=== PATIENT | female | born 1955 | race Two or more races ===

== ENCOUNTER → 2016-06-22 | Outpatient (CLI) | payer OTHER ==
[~2016-06-22] MED LIST: ADV25050 INH; ALBU8.5H3 INH; AMLO5TAB4 PO; ASPI-664 PO; BENZ-5 PO; CALC-385 PO; FAMO20TA18 PO; IBUP-1542 PO; LORA0.5T PO; MONT10TA21 PO; VALS80TA2 PO
--- NOTE | 2016-06-23 08:28 | RADRPT ---
PROCEDURE: XR pelvis/right hip. CLINICAL INDICATION: Hip pain TECHNIQUE: 2 views performed COMPARISON: 09/06/2015 FINDINGS: There is severe right hip osteoarthrosis and moderate to severe left hip osteoarthrosis. This is ass ociated with joint space narrowing, subchondral sclerosis , subchondral cyst formation and osteophyt osis. There is normal mineralization. No fractures or osseous lesions are identified. The soft ti ssues are unremarkable. IMPRESSION: Severe right hip osteoarthrosis. Moderate to severe left hip osteoarthrosis RPTAT: HGDB .Ashok Ceja MD, MD Date Time Electronically viewed and signed by .Ashok Ceja MD, on 06/23/2016 08:27 .B/
== END | disposition home or self-care (01) ==
LOC: HKI 09:13
PROVIDERS: ATTEND Orthopaedic Surgery
DX: M16.0 Bilateral primary osteoarthritis of hip (principal); Z86.718 Personal history of other venous thrombosis and embolism
CPT/HCPCS: 73502; Z7500; G0463

== ENCOUNTER → 2016-09-28 | Outpatient (CLI) | payer OTHER ==
--- NOTE | 2016-09-28 12:50 | RADRPT ---
PROCEDURE: XR Chest. CLINICAL INDICATION: Preoperative chest TECHNIQUE: Chest PA. COMPARISON: No comparison available. FINDINGS: The mediastinal structures are unremarkable. The heart is normal in size and configuration. The pu lmonary vascularity is normal. The lung chand are unremarkable. No consolidation is identified. The pleural spaces are unremarkable. The axial skeleton is unremarkable. IMPRESSION: No active intrathoracic disease. RPTAT: HGDB .Ashok Ceja MD, MD Date Time Electronically viewed and signed by .Ashok Ceja MD, on 09/28/2016 12:50 .B/
== END | disposition home or self-care (01) ==
LOC: HKI 11:40
PROVIDERS: ATTEND Orthopaedic Surgery
DX: M25.551 Pain in right hip (principal); M16.11 Unilateral primary osteoarthritis, right hip
CPT/HCPCS: 71010; Z7500; G0463

== ENCOUNTER 2016-10-08 05:40 | Inpatient (IN) | payer OTHER ==
--- NOTE | 2016-10-06 18:13 | PREOPHP ---
DATE OF ADMISSION: 10/08/2016 DICTATING PHYSICIAN: Dr. Pretty Jonas. REASON FOR ADMISSION: The patient is a 61-year-old female with long-standing history of right hip pa in, difficulty walking, standing and nocturnal pain. She is scheduled for right anterior total hip arthroplasty with Dr. Cole. HISTORY OF THE PRESENT ILLNESS: The patient is a 61-year-old female with right hip pain, difficult y standing, working. PAST MEDICAL HISTORY: Positive for hypertension, hyperlipidemia, depression, insomnia, asthma and h istory of DVT, status post venous stripping of left lower extremity in 2004. PAST SURGICAL HISTORY: Positive for hysterectomy in 2013, angiogram with 2 stent placements in 2014 and history of DVT, status post venous stripping left lower extremity in 2004. ALLERGIES: The patient has no known drug allergies. MEDICATIONS: 1. Aspirin 81 mg once a day. 2. Furosemide 40 mg once a day. 3. Klor-Con 8 mEq once a day. 4. Omeprazole 20 mg once a day. 5. Vitamin D 50,000 units once a week. 6. Escitalopram 20 mg once a day. 7. Amlodipine 5 mg once a day. 8. Advair 250/50 one puff twice a day. 9. Losartan with hydrochlorothiazide 100/25. 10. Gabapentin 100 mg one pill at bedtime. 11. Meclizine 25 mg once p.o. b.i.d. 12. Lipitor 40 mg one p.o. at bedtime. SOCIAL HISTORY: No smoking, no alcohol. No history of illicit drugs. FAMILY HISTORY: Noncontributory. REVIEW OF SYSTEMS: GENERAL: The patient had no weight loss. Denies weight loss. No night sweats, no visual changes, no throat pain. RESPIRATORY: Denies cough, history of asthma. CARDIOVASCULAR: History of hypertension, no chest pain, no palpitations. GASTROINTESTINAL: History of GERD, no pain, no distention. GENITOURINARY: No flank pain, no dysuria. MUSCULOSKELETAL: Right hip pain. NEUROPSYCHIATRIC: The patient has history of depression, no SI or HI. PHYSICAL EXAMINATION: GENERAL: The patient is in no acute distress. VITAL SIGNS: The patient's weight is 180 pounds, blood pressure 118/73, heart rate 77, respiratory rate 18, temperature 97.1. The patient's height is 5 feet 4 inches. HEENT: Normocephalic and atraumatic. PERRLA. Throat is clear. RESPIRATORY: Clear to auscultation bilaterally, no wheezing, no rhonchi. CARDIOVASCULAR: Regular rate and rhythm with no murmur. GASTROINTESTINAL: Nontender and nondistended. Bowel sounds are positive in 4 quadrants. GENITOURINARY: No CVA tenderness. MUSCULOSKELETAL: Right hip tenderness with decreased range of motion NEUROLOGICAL: Cranial nerves II through XII are intact. No pathological reflexes. PSYCHIATRIC: Alert and oriented. ASSESSMENT AND PLAN: Right hip osteoarthritis and is planned for anterior right total hip arthropla sty with Dr. Phillip Velasquez. Dictated By: GENERIC AUTHOR for JITENDRA MOLINA/ZACKARY Conf#: [id number] DID#: [id number]
[2016-10-07 10:42] VITALS: BMI 35.5
[~2016-10-08] VITALS: Ht 162.6 cm; Wt 85.7 kg
[2016-10-08] VITALS (23 sets, daily range): BP systolic 101–141; BP diastolic 55–76; PULSE 65–84; RESP 14–25; Ht 162.6 cm; Wt 85.7 kg
[2016-10-08] MEDS ORDERED: PREGABALIN 300 MG PO X1 PO ONE (06:00)
[2016-10-08] MEDS ORDERED: TRANEXAMIC ACID 910 MG in SOD CHLORIDE 0.9% 90.9 ML IV ONE (06:00)
[2016-10-08] MEDS ORDERED: oxyCODONE (CR) 10 MG TAB [oxyCONTIN] X1 DOSE PO ONE (06:00)
[2016-10-08] MEDS ORDERED: BUPIVACAINE LIPOSOME/PF 266 MG/20 ML VIAL INFIL ONE (06:00)
[2016-10-08] MEDS ORDERED: PAIN COCKTAIL-CEFUROXIME IRR ONE ×7 (06:00)
[2016-10-08] MEDS ORDERED: CEFAZOLIN 2GM/50 ML (PMX) 50 ML X1 BEFORE INCISION IVPB ONE (06:00)
[2016-10-08] MEDS ORDERED: traMADOL 50 MG TAB X 1 DOSE PO ONE (06:00)
[2016-10-08] MEDS ORDERED: CELECOXIB 400 MG PO X1 DOSE PO ONE (06:00)
[2016-10-08] MEDS ORDERED: POLYMYXIN B 500000 UNIT INJ ONE (06:58)
[2016-10-08] MEDS ORDERED: VANCOMYCIN 1 GM INJ ONE (06:58)
[2016-10-08] MEDS ORDERED: ETOMIDATE 20 MG INJ ONE (07:00)
[2016-10-08] MEDS ORDERED: GLYCOPYRROLATE 0.4 MG INJ ONE (07:05)
[2016-10-08] MEDS ORDERED: NEOSTIGMINE 3 MG/3 ML SYRINGE ONE (07:05)
[2016-10-08] MEDS ORDERED: CEFAZOLIN 1 GM INJ ONE (07:05)
[2016-10-08] MEDS ORDERED: ROCURONIUM 50 MG INJ ONE (07:05)
[2016-10-08] MEDS ORDERED: PROPOFOL 20 ML ONE (07:05)
[2016-10-08] MEDS ORDERED: MIDAZOLAM 1 MG/ML 2 ML INJ ONE (07:07)
[2016-10-08] MEDS ORDERED: ONDANSETRON 4 MG INJ ONE (07:07)
[2016-10-08] MEDS ORDERED: DEXAMETHASONE 4 MG/ML 1 ML INJ ONE (07:07)
[2016-10-08] MEDS ORDERED: FENTAnyl 50 MCG/ML VIAL ONE (07:07)
--- NOTE | 2016-10-08 07:08 | HPN ---
Date/Time of Note Date/Time of Note DATE: 10/08/16 TIME: 07:07 Interval H&P Admission Note Pt. seen H&P reviewed: No system changes No changes from H&P on 10/06/16 by JITENDRA Hickman MD Oct 08, 2016 07:08
[2016-10-08] MEDS ORDERED: EPHEDrine SULFATE 50 MG/5 ML SYG ONE (07:57)
[2016-10-08] MEDS ORDERED: BACITRACIN 50000 UNITS INJ IRR ONE (08:16)
[2016-10-08] MEDS ORDERED: DIPHENHYDRAMINE 50 MG INJ IV PRN (08:30)
[2016-10-08] MEDS ORDERED: LABETALOL HCL 20MG INJ IV PRN (08:30)
[2016-10-08] MEDS ORDERED: HYDROmorphONE (0.2 MG/ML) 10ML SYG IV PRN ×3 (08:30)
[2016-10-08] MEDS ORDERED: MEPERIDINE 25 MG INJ IV PRN (08:30)
[2016-10-08] MEDS ORDERED: TRIMETHOBENZAMIDE 100 MG/ML VIAL IM PRN (08:30)
[2016-10-08] MEDS ORDERED: EPHEDrine SULFATE 50 MG/5 ML SYG IV PRN (08:30)
[2016-10-08] MEDS ORDERED: FENTAnyl 50 MCG/ML VIAL IV PRN ×3 (08:30)
[2016-10-08] MEDS ORDERED: MIDAZOLAM 1 MG/ML 2 ML INJ IV PRN (08:30)
[2016-10-08] MEDS ORDERED: ONDANSETRON 4 MG INJ IV PRN ×2 (08:30→10:00)
[2016-10-08] MEDS ORDERED: hydrALAzine 20 MG INJ IV PRN (08:30)
[2016-10-08] MEDS ORDERED: PROPOFOL 100 ML ONE (08:48)
[2016-10-08] MEDS: LACTATED RINGER'S 1,000 ML IV SCH ×4 (09:39→17:39)
[2016-10-08] MEDS: TRANEXAMIC ACID 910 MG in SOD CHLORIDE 0.9% 100 ML IVPB ONE ×3 (09:41)
--- NOTE | 2016-10-08 09:48 | RADRPT ---
PROCEDURE: X-ray fluoroscopy guidance CLINICAL INDICATION: RT HIP REPLACEMENT TECHNIQUE: Fluoroscopic guidance was utilized for intraoperative procedure. COMPARISON: Plain radiographs of the right hip from 09/06/2015 FINDINGS: Fluoroscopic guidance was utilized for intraoperative procedure. 0.9 minutes of fluoroscopy time wa s utilized for the procedure. 16 x-ray images were obtained during the procedure. A total right hip prosthesis is noted in near anatomic alignment. IMPRESSION: X-ray fluoroscopic guidance utilized for intraoperative procedure. Total right hip prosthesis in near anatomic alignment. Please see procedure note details. RPTAT: EE Physician Luz Date Time Electronically viewed and signed by Physician Luz on 10/08/2016 09:48 RA/
--- NOTE | 2016-10-08 09:56 | PDOCDIS ---
Discharge Instructions DIAGNOSIS Discharge Diagnosis: s/p right anterior GABE CONDITION Patient Condition: Good HOME CARE INSTRUCTIONS: Diet Instructions: Regular ACTIVITY: Activity Restrictions: Slowly Increase Activity Rest between Activity Avoid heavy lifting Do not operate Machinery Do not operate Power Tool Avoid Heavy Housework Keep Limb Elevated Bathing Restrictions: Shower FOLLOW UP/APPOINTMENTS Appointments follow up in the office on 10/19/16 OTHER ORDERS: Other Orders: S/P Anterior GABE Physical Therapy: Three times per week at home x 3 weeks Daily in Rehab/SNF WB STATUS: WBAT Strengthening exercises for both upper and un-operated lower extremities. 1. Gait training with front wheeled walker 2. Wide base gait, no pivot turns. 3. Abductor strengthening. 4. Quadriceps and hamstring strengthening. 5. May switch to cane in contra lateral hand 6 weeks after surgery. 6. Physical Therapy can open case if nursing is not available. 7. Ice Packs while at rest to surgical wound for 20 minutes, 3 times/day. 8. Patient requires mobile SCDs to reduce risk of developing DVT following GABE. Patient will use the mobile SCDs for 30 days postoperatively. Hip Precautions: no posterior hip precautions Bathing assistance by home health aide twice weekly if Medicare patient. Occupational Therapy: Evaluation for assistive devices and ADL training. Wound Care: Keep incision dry & covered with Tegaderm until first visit with Dr. Velasquez Anticoagulation Orders: Adjusted Coumadin dose x 3 weeks from the date of surgery. Target INR 1.7-2.0. Prothrombin time & INR are done every Wednesday and for three weeks post- operatively. Please call and leave a message with [employer] @ [phone] with results the same day before the close of business. The patient should not eat green leafy vegetables. Follow-up: Call for an appointment with Dr. Velasquez in 1 week after discharged from hospital at . DME Orders: FWMode, 3-in-1 Commode, Mobile SCDs SAURABH CHAVEZ PA-C Oct 08, 2016 09:56
--- NOTE | 2016-10-08 09:56 | OPR ---
Date/Time of Note Date/Time of Note DATE: 10/08/16 TIME: 09:55 Operative Report Free Text/Dictation Dictation # [id number] Procedure Date: Oct 08, 2016 Preoperative Diagnosis Right Hip OA Postoperative Diagnosis Same Operation Performed Right Anterior GABE Surgeon: JITENDRA AWAD MD urgent care physician assistant: SAURABH CHAVEZ PA-C Anesthesia: general, spinal Anesthesiologist: Jeremi Fung M.D. Estimated Blood Loss: 250 - 300 ml's Specimens Femoral Head Tubes/Drains Hemovac x 1 Complications: None Pt Condition Post Procedure: stable Disposition: PACU JITENDRA AWAD MD Oct 08, 2016 09:56
[2016-10-08] MEDS ORDERED: BISACODYL 10 MG SUPP PR PRN (10:00)
[2016-10-08] MEDS ORDERED: HYDROmorphONE 1 MG/ML SYG IV PRN (10:00)
[2016-10-08] MEDS ORDERED: NA PHOSPHATE/BIPHOS 133 ML ENEMA PR PRN (10:00)
[2016-10-08] MEDS ORDERED: MAGNESIUM HYDROXIDE 30ML CUP PO PRN (10:00)
[2016-10-08] MEDS ORDERED: DIPHENHYDRAMINE 25 MG CAP PO PRN (10:00)
[2016-10-08] MEDS ORDERED: NACL 0.9% 3 ML SYG IV SCH (10:00)
--- NOTE | 2016-10-08 10:00 | PN ---
Date/Time of Note Date/Time of Note DATE: 10/08/16 TIME: 09:58 Assessment/Plan Lines/Catheters IV Catheter Type (from Nrsg): Saline Lock Assessment/Plan Assessment/Plan Stable in PACU, s/p right anterior GABE -continue Ancef until drain removed -pain meds as needed -Coumadin 3mg at 1700 today -SCDs BLE for DVT prophylaxis -OOB with PT -monitor drain -check AM labs including INR -d/c urbano in AM XR of the right hip is pending at this time Subjective 24 Hr Interval Summary Stable in PACU. Moving all extremities. Denies pain. Exam/Review of Systems Vital Signs Vitals Vital Signs Date Time Temp Pulse Resp B/P Pulse Ox O2 Delivery O2 Flow Rate FiO2 10/08/16 09:49 97.7 10/08/16 07:02 82 18 140/71 98 Room Air Exam Free Text/Dictation Hemovac: minimal Dressing dry Incision clean, dry, and intact without redness or drainage 5/5 Quadriceps, Tibialis Anterior, EHL, Gastroc, Soleus, Peroneals Normal sensation Palpable DT/PT, CR <2 sec No distal edema SAURABH CHAVEZ PA-C Oct 08, 2016 10:00
[2016-10-08 10:19] LABS: HEMATOCRIT 36.7 % (37.0-47.0); HEMOGLOBIN 12.1 g/dl (12.0-16.0)
[2016-10-08] MEDS: CEFAZOLIN 2 GM/50 ML (PMX) 50 ML IVPB SCH ×2 (10:19→22:12)
[2016-10-08 10:33] LABS: CALCIUM 8.7 mg/dl (8.4-10.2); CREATININE 0.56 mg/dl (0.44-1.00); POTASSIUM 4.2 mmol/L (3.5-5.1)
--- NOTE | 2016-10-08 10:57 | RADRPT ---
PROCEDURE: XR Pelvis CLINICAL INDICATION: Postop TECHNIQUE: Two AP radiographs were submitted. COMPARISON: The intraoperative study done earlier on the same date FINDINGS: Osseous structures: A well seated total right hip replacement is again evident. The osseous element s otherwise appear intact. Mild degenerative endplate changes are seen within the lumbar spine. Joint spaces: Moderate degenerative changes seen about the left hip. the sacroiliac joints appear unremarkable without significant erosions or sclerosis. Soft tissues: A surgical drain is been placed about the right hip, there is subcutaneous air and sup erficial wilman have been placed laterally. A Ramirez catheter is evident. IMPRESSION: 1. Well seated total right hip replacement with the drain in place along with superficial wilman. Postop subcutaneous air is noted. 2. Moderate degenerative change seen of about the left hip with degenerative change also seen withi n the lumbar spine. 3. A Ramirez catheter is in place. Physician Aye Date Time Electronically viewed and signed by Physician Aye on 10/08/2016 10:56 RH/
--- NOTE | 2016-10-08 11:01 | OPR ---
DATE OF OPERATION: 10/08/2016 PREOPERATIVE DIAGNOSIS: Right hip osteoarthritis. POSTOPERATIVE DIAGNOSIS: Right hip osteoarthritis. OPERATION PERFORMED: Right anterior total hip arthroplasty. SURGEON: Jitendra Velasquez MD LEAD GAME DESIGNER: ENZO Mckinley COMPONENTS USED: DePuy size 50 mm Gription Luana cup, 50/32 neutral AltrX polyethylene liner, si ze 3 high offset Actis stem, 32+1 ceramic head. ANESTHESIA: Spinal plus general endotracheal intubation plus periarticular injection. ANESTHESIOLOGIST: Dr. Fung. ESTIMATED BLOOD LOSS: 300 mL. INTRAVENOUS FLUIDS: Two liters crystalloid. SPECIMENS: Femoral head. DRAINS: Hemovac x1. COMPLICATIONS: None. DISPOSITION: Patient tolerated the procedure well and was taken to the recovery room in stable cond ition. INDICATIONS: The patient is a 61-year-old woman who has had progressive worsening pain in the right hip with radiographic evidence of severe osteoarthritis. She has failed nonsurgical means of treat ment to control her pain including activity modifications, pain medications, intra-articular injecti ons and ambulatory assist devices. Despite these measures, she has had worsening pain and I felt sh e would benefit from a total hip arthroplasty through an anterior approach. The risks, benefits, and alternatives of the procedure were explained in detail to the patient. I e xplained the risks of the surgery to include, but not be limited to: bleeding and possible need for blood transfusion; infection; pain; stiffness; neurovascular injury with possible numbness, weakness , and/or paralysis anywhere from the hip down to the toes; fracture; instability; dislocation; leg l ength inequality; wear and/or loosening of the prosthesis and possible need for future revision; blo od clots; pulmonary embolism; and anesthetic complications such as heart attack, stroke, GI bleed, p neumonia, and/or . Ample time was allowed for the patient to ask questions, all of which were addressed and answered. The patient understood the risks involved and wished to proceed. Informed c onsent was signed prior to the procedure. PROCEDURE: The patient's right hip was initialed with a marking pen in the preoperative area to iden tify the correct operative site. The patient was brought to the operating room and transferred from the [facility] to the [facility] where a spinal anesthetic was administered. The patient was then anesthetized and intubated. A Ramirez catheter was placed. Both feet were placed into well-padd ed boots which were then placed into the leg holders of the traction booms. A timeout was performed to confirm that the right side was the correct operative site. The patient was given 2 g of intrav enous Ancef within one hour prior to the procedure. The operative hip was prepped and draped in the usual sterile fashion. A 10 cm oblique incision was made over the anterior aspect of the hip and carried down through subcu taneous tissue and fat with sharp dissection. The tensor fascia dimas was incised along the length o f the wound. The tensor fascia muscle was retracted laterally and the sartorius medially. The anter ior circumflex vessels were identified and tied off with 2-0 silk suture and coagulated with the [employer] josé miguel Link butcherette. The rectus femoris was elevated off the anterior capsule and an anterior capsu lectomy performed. A femoral neck osteotomy was made and the head removed from the acetabulum. The acetabulum was denuded of cartilage circumferentially, as was the femoral head. Retractors were pl aced around the acetabulum. The remnants of the labrum and ligamentum teres were excised. I reamed the acetabulum to the medial wall and then went into an anatomic position and increased the reamer size in 2 mm increments until I got a good bite and was down to bleeding subchondral bone. The Luana cup was opened and impacted into the acetabulum and sat flush circumferentially, gettin g a good bite. C-arm imaging showed it had about 40 to 45 degrees of abduction and 20 degrees of ant eversion. The real liner was opened and impacted into the acetabulum and sat flush circumferentiall y. Attention was turned towards the femur. The operative leg was carefully lowered to the floor with the leg adducted. The foot was then exter leroy rotated to approximately 110 degrees. A posteromedial release was performed to optimize expos ure. The femoral hook was placed underneath the proximal femur and the hydraulic lift was then used to elevate the femur up out of the wound. The irma cutter osteotome was used to remove the remai erika overhanging greater trochanter. The femur was then broached, going up in one size increments u ntil it sat flush with the neck cut and a stable fit was achieved. The trial neck and head were ass embled and reduced into the acetabulum. Fluoroscopic imaging showed the components to be in good pos ition and the leg lengths and offsets to be equal. At this point, the trial was dislocated and the trial broach removed. The canal was irrigated and d ried. The real stem was opened and impacted into the femur. The trunnion was irrigated and dried, a nd the real femoral head was impacted onto the trunnion, and reduced into the acetabulum. The soft tissues were infiltrated with a mixture of 150 mg of 0.5% Bupivacaine, 8 mg of Duramorph, 3 00 mcg of epinephrine, 30 mg of Toradol, 100 mcg of clonidine, 750 mg of cefuroxime and 86 mL of nor mal saline, followed by an injection of 266 mg of liposomal Bupivacaine. At this point the hip was irrigated with a mixture of betadine/saline and then antibiotic saline with pulsatile lavage. A Hem ovac drain was placed in the deep portion of the wound and brought out the anterolateral thigh. Ther e was good hemostasis. The tensor fascia dimas was repaired with a running #1 Vicryl. The deep fat layer was irrigated and closed with 2-0 Stratafix and the subcutaneous layer closed with 3-0 Vicryl and the skin was closed with wilman and then sealed with Dermabond. The drain was secured with 3-0 nylon. The sponge and needle counts were correct at the end of the case. The wound was covered with an occ lusive dressing. The patient was awakened, extubated, and taken to the recovery room in stable cond ition. Dictated By: JITENDRA TRIVEDI/ZACKARY Conf#: [id number] DID#: [id number]
[2016-10-08] MEDS ORDERED: EXPAREL NOTE (BUPIVICAINE LIPOSOMAL) XX SCH (11:30)
[2016-10-08] MEDS: ALBUTEROL 18 GM INHALER INH SCH (12:00)
--- NOTE | 2016-10-08 12:14 | CONS ---
Date/Time of Note Date/Time of Note DATE: 10/08/16 TIME: 12:14 Assessment/Plan Assessment/Plan Chief Complaint/Hosp Course 61 yo F with pmhx asthma, R hip OA sp R GABE 6.05.26 admitted to the hospital for post operative monitoring, now with complaint of chest/back pain. #chest pain: from the time of my initial encounter with the patient (2 hours between) chest pain resolved and pt endorsed mild upper back pain. EKG reassuring as was troponin. CK MB nl, CK slightly elevated. differential diagnosis cardiac v MSK v other PLAN -transfer to tele monitoring -formal ACS r/o with serial cardiac enzymes -TTE -possible cardiology consult in AM pending results of above #asthma: cont home inhalers #GABE: as per ortho -ATC as per ortho #FEN: as per ortho thank you for this consult hospitalist service to continue to follow POC dw pt and family at length Problems: Consultation Date/Type/Reason Admit Date/Time Oct 08, 2016 at 05:40 Type of Consultation: Hospitalist Reason for Consultation medical management Referring Provider: JITENDRA AWAD MD Hx of Present Illness 61 yo F with pmhx asthma, DVT sp ATC, R hip OA sp elective R hip GABE earlier today admitted to the hospital for post operative monitoring. Hospitalist service consulted for medical management. Upon transfer from PACU to the floor, pt began to experience L sided chest pain. It is relieved by dilaudid. Does not change with exertion or deep breathing. +occ radiation to L arm. Pt denies any previous h/o chest pain and chart review does not reveal any CAD hx. Pt does not freely endorse weight changes, fever, chills, rashes, SOB, abd pain , constipation, diarrhea, pain on urination, blood in in her urine, numbness, tingling, weakness, or headaches. No palpitations. Past Medical History h/o LE DVT >10 yrs ago, sp ATC x unknown amount of time h/o varicose veins Medical History: other (asthma, h/o DVT) Past Surgical History R GABE today Family History Significant Family History: no pertinent family hx Social History lives in the community with family Smoking Status: Never smoker Exam/Review of Systems Vital Signs Vitals Vital Signs Date Time Temp Pulse Resp B/P Pulse Ox O2 Delivery O2 Flow Rate FiO2 10/08/16 10:47 Nasal Cannula 2.0 10/08/16 10:47 98.2 21 134/71 96 10/08/16 10:43 84 Exam laying in bed, uncomfortable at times no carotid bruits rrr no mrg no ttp over costochondral joints lungs clear abd soft R surgical site c/d/i no le edema no rashes responds to questions appropriately moves exts freely woundvac from R hip with serosang drainage Results Result Diagram: 10/08/16 1004 10/08/16 1004 Results 24 hrs Laboratory Tests Test 10/08/16 10:04 Hemoglobin 12.1 Hematocrit 36.7 L Sodium Level 140 Potassium Level 4.2 Chloride Level 110 Carbon Dioxide Level 28 Anion Gap 6 L Blood Urea Nitrogen 11 Creatinine 0.56 Glucose Level 179 Calcium Level 8.7 Medications Medications Current Medications Lactated Ringer's (Lr) 1,000 ml @ 100 mls/hr Q10H IV Last administered on t 12:11; Admin Dose 100 MLS/HR; Start 10/08/16 at 06:00; Stop 10/08/16 at 23:00 Miscellaneous Information 1 ea NOTE XX ; Start 10/08/16 at 11:30; Stop 10/08/16 at 23:00 Albuterol (Ventolin Hfa) 2 puff Q6 INH ; Start 10/08/16 at 12:00 Amlodipine Besylate (Norvasc) 5 mg DAILY PO ; Start 10/09/16 at 09:00 Benzonatate (Tessalon) 200 mg Q8H PRN PO COUGH; Start 10/08/16 at 13:00 Montelukast Sodium (Singulair) 10 mg HS PO ; Start 10/08/16 at 21:00 Salmeterol Xinafoate/ Fluticasone (Advair 250/50 Diskus) 1 inh BID INH ; Start 10/08/16 at 21:00 Valsartan 80 mg 80 mg DAILY PO ; Start 10/09/16 at 09:00 Lactated Ringer's (Lr) 1,000 ml @ 125 mls/hr Q8H IV ; Start 10/08/16 at 09:39 Tramadol HCl (Ultram) 50 mg Q6 PO ; Start 10/08/16 at 12:00; Stop 10/11/16 at 11: 59 Acetaminophen/ Hydrocodone Bitart (Briggs (5/325)) 1 tab Q4H PRN PO PAIN LEVEL 1 -3; Start 10/08/16 at 10:00 Acetaminophen/ Hydrocodone Bitart (Briggs (5/325)) 2 tab Q4H PRN PO PAIN LEVEL 4 -7; Start 10/08/16 at 10:00 Hydromorphone HCl 1 mg 1 mg Q3H PRN IV PAIN LEVEL 8-10; Start 10/08/16 at 10:00 Cefazolin Sodium/ Dextrose (Ancef 2 Gm/50 ml (Pmx)) 50 ml @ 100 mls/hr Q8H IVPB Last administered on 10/08/16t 10:19; Admin Dose 100 MLS/HR; Start 10/08/16 at 10:00; Stop 10/09/16 at 02:29 Ondansetron HCl (Zofran Inj) 4 mg Q6H PRN IV NAUSEA AND/OR VOMITING; Start 10/08 at 10:00 Bisacodyl (Dulcolax Supp) 10 mg Q12H PRN [place] CONSTIPATION; Start 10/08/16 at 10: 00 Magnesium Hydroxide (Milk Of Mag) 30 ml BID PRN PO CONSTIPATION; Start 10/08/16 at 10:00 Sodium Biphosphate/ Sodium Phosphate (Fleet Enema) 133 ml DAILY PRN [place] CONSTIPATION; Start 10/08/16 at 10:00 Docusate Sodium (Colace) 100 mg BID PO ; Start 10/08/16 at 21:00 Diphenhydramine HCl (Benadryl) 25 mg Q6H PRN PO PRURITUS; Start 10/08/16 at 10: 00 Warfarin Sodium (Coumadin) 3 mg ONCE@17 PO ; Start 10/08/16 at 17:00; Stop at 23:00 Pantoprazole (Protonix Tab) 40 mg BID@06,18 PO ; Start 10/08/16 at 18:00 Procedures Procedures cardiac markers reviewed GHANSHYAM CHAHAL MD Oct 08, 2016 12:14
[2016-10-08 12:33] LABS: CREATINE KINASE 228 IU/L (23-200)
[2016-10-08 12:46] LABS: CK-MB 1.74 ng/ml (0.0-2.4)
[2016-10-08 12:47] LABS: TROPONIN-I < 0.012 ng/ml (0.00-0.12)
[2016-10-08] MEDS ORDERED: BENZONATATE 100 MG CAP PO PRN (13:00)
[2016-10-08] MEDS ORDERED: TRANEXAMIC ACID 860 MG in SOD CHLORIDE 0.9% 100 ML IVPB ONE ×2 (13:00→16:00)
[2016-10-08] MEDS ORDERED: HYDR-3498 PO (13:45)
[2016-10-08] MEDS ORDERED: TRAM50TA2 PO (13:45)
[2016-10-08] MEDS ORDERED: BACITRACIN 50000 UNITS INJ ONE (15:09)
[2016-10-08] MEDS ORDERED: WARFARIN 3 MG TAB PO SCH (17:00)
[2016-10-08 17:17] LABS: CREATINE KINASE 254 IU/L (23-200)
--- NOTE | 2016-10-08 17:26 | RADRPT ---
Echocardiogram Report Patient Name: JESSICA HOLCOMB Gender: Female Date: 1955 Study Date: 08-Oct-2016 [employer] Repairer: Riley [facility] Location: [id number] Ref. Physician: GHANSHYAM CHAHAL Quality: Adequate Procedures: Transthoracic echocardiogram with complete 2D, M-Mode, and doppler examination. Indications: Chest Pain. 2D/M Mode Doppler Measurement Value Normal Ranges Measurement Value Normal Ranges LVIDd 2D 3.7 3.5 - 5.6 cm AV Peak Ez 1.3 m/sec LVIDs 2D 2.6 2.1 - 4.1 cm AV Peak PG 6.3 mmHg LVPWd 2D 1.1 0.6 - 1.1 cm AI Peak PG 12.6 mmHg IVSd 2D 1.1 0.6 - 1.1 cm AI Peak Ez 1.8 m/sec AoR Diam 2D 2.4 2.0 - 3.7 cm AI PHT 356.6 msec EDV 2D 59.7 cm3 LVOT Peak Ez 1.0 m/sec ESV 2D 16.6 cm3 LVOT Peak PG 4.3 mmHg LA Dimen 2D 3.6 2.3 - 4.0 cm MV E Peak Ez 0.8 m/sec MV A Peak Ez 0.8 m/sec MV E/A 1.0 MV Decel Time 209 msec MV Decel [place] 4 MV E/A 1.0 TR Peak Ez 2.5 m/sec TR Peak PG 24.3 mmHg RVSP 27.0 mmHg Findings Left Ventricle: Normal left ventricular systolic function. Normal left ventricular cavity size. Normal left ventricular wall thickness. Ejection fraction is visually estimated at 65 %. Tissue Doppler/Mitral Doppler indices are within normal limits. Right Ventricle: Normal right ventricular size. Normal right ventricular systolic function. Left Atrium: The left atrium is normal in size. Right Atrium: The right atrium is normal in size. Mitral Valve: Moderate mitral annular calcification. Trace mitral regurgitation. Aortic Valve: Normal appearance of the aortic valve. Mild aortic valve regurgitation. Tricuspid Valve: Normal appearance of the tricuspid valve. Estimated peak PA systolic pressure 27 mmHg. There is mild tricuspid regurgitation. Pulmonic Valve: Pulmonic valve not well visualized. There is trace pulmonic regurgitation. Pericardium: Normal pericardium with no significant pericardial effusion. Aorta: Normal aortic root. IVC: Normal size and normal respiratory collapse consistent with normal right atrial pressure. Conclusions 1.Normal left ventricular systolic function. Normal left ventricular cavity size. Normal left ventricular wall thickness. Ejection fraction is visually estimated at 65 %. Tissue Doppler/Mitral Doppler indices are within normal limits. 2.No significant valvular stenosis or regurgitation seen. 3.Estimated peak PA systolic pressure 27 mmHg based on RA pressure of 3 mmHg. Electronically Signed By: Bryce Rodrigues 08-Oct-2016 17:25:34 -0700 Patient Name: JESSICA HOLCOMB Study Date: 08-Oct-[id number]
[2016-10-08 17:31] LABS: CK-MB 1.89 ng/ml (0.0-2.4)
[2016-10-08 17:32] LABS: TROPONIN-I < 0.012 ng/ml (0.00-0.12)
--- NOTE | 2016-10-08 17:46 | RADRPT ---
Vent Rate: 65 bpm RR Interval: 0 msec ND Interval: 178 msec QRS Duration: 72 msec QT Interval: 426 msec QTC Interval: 443 msec P-R-T [place]: 57 - 54 - 71 degrees Normal sinus rhythm Low voltage QRS Borderline ECG Electronically Signed By: Bryce Rodrigues [id number]
[2016-10-08] MEDS: traMADol 50 MG TAB PO SCH ×2 (18:00→23:32)
[2016-10-08] MEDS: PANTOPRAZOLE (EC) 40 MG TAB PO SCH (18:23)
[2016-10-08] MEDS: DOCUSATE SODIUM 100 MG CAP PO SCH (21:21)
[2016-10-08] MEDS: MONTELUKAST 10 MG TAB PO SCH (21:21)
[2016-10-08] MEDS: SALMETEROL/FLUTICASONE 250/50 INHA INH SCH (22:09)
[2016-10-09] VITALS (12 sets, daily range): BP systolic 94–123; BP diastolic 49–65; PULSE 61–82; RESP 15–18
[2016-10-09] MEDS: ALBUTEROL 18 GM INHALER INH SCH ×6 (00:25→23:35)
[2016-10-09] MEDS: HYDROCODONE/APAP (5/325) TAB PO PRN ×6 (00:26→23:34)
[2016-10-09] MEDS: LACTATED RINGER'S 1,000 ML IV SCH ×3 (00:28→09:48)
[2016-10-09] MEDS: CEFAZOLIN 2 GM/50 ML (PMX) 50 ML IVPB SCH (01:26)
[2016-10-09 02:43] LABS: CREATINE KINASE 275 IU/L (23-200)
[2016-10-09 03:08] LABS: TROPONIN-I < 0.012 ng/ml (0.00-0.12)
[2016-10-09] MEDS: PANTOPRAZOLE (EC) 40 MG TAB PO SCH ×2 (05:17→17:07)
[2016-10-09 06:05] LABS: HEMATOCRIT 28.6 % (37.0-47.0); HEMOGLOBIN 9.6 g/dl (12.0-16.0)
[2016-10-09] MEDS: traMADol 50 MG TAB PO SCH ×3 (06:14→17:06)
[2016-10-09 06:15] LABS: INR 1.02; PROTIME 13.4 Sec (12.2-14.2)
[2016-10-09 06:39] LABS: CALCIUM 8.5 mg/dl (8.4-10.2); CREATININE 0.49 mg/dl (0.44-1.00); POTASSIUM 4.4 mmol/L (3.5-5.1)
--- NOTE | 2016-10-09 08:54 | PN ---
Date/Time of Note Date/Time of Note DATE: 10/09/16 TIME: 08:53 Assessment/Plan Lines/Catheters IV Catheter Type (from Nrsg): Peripheral IV Ramirez in Place (from Nrsg): Yes Assessment/Plan Assessment/Plan POD # 1. Stable. -Drain d/c'd -Pain meds -OOB with PT -Coumadin -SCDs Subjective 24 Hr Interval Summary Comfortable. Minimal hip pain. Denies chest pain. Exam/Review of Systems Vital Signs Vitals Vital Signs Date Time Temp Pulse Resp B/P Pulse Ox O2 Delivery O2 Flow Rate FiO2 10/09/16 08:00 61 10/09/16 07:16 98.1 16 100/55 100 10/08/16 21:00 Nasal Cannula 2.0 Intake and Output 10/08/16 10/08/16 10/09/16 15:00 23:00 07:00 Intake Total 3017.7 ml 158.6 ml 3337.5 ml Output Total 450 ml 1200 ml 3040 ml Balance 2567.7 ml -1041.4 ml 297.5 ml Exam Free Text/Dictation Hemovac: 40 cc Dressing dry Incision clean, dry, and intact without redness or drainage 5/5 Tibialis Anterior, EHL, Gastroc Soleus, Peroneals Normal sensation Palpable DP/PT, CR < 2 Sec No distal edema INR 1.02 Results Result Diagram: 10/09/16 0538 10/09/16 0538 JITENDRA AWAD MD Oct 09, 2016 08:54
[2016-10-09] MEDS: VALSARTAN 80 MG TAB PO SCH (09:00)
[2016-10-09 09:06] LABS: ADD UMIC YES; URINE BILIRUBIN (Dip) NEGATIVE (NEGATIVE); URINE BLOOD (Dip) 1+ (NEGATIVE); URINE COLOR LT. YELLOW (YELLOW); URINE GLUCOSE (Dip) NEGATIVE (NEGATIVE); URINE KETONES (Dip) NEGATIVE (NEGATIVE); URINE LEUKOCYTE ESTERASE (Dip) NEGATIVE (NEGATIVE); URINE NITRITE (Dip) NEGATIVE (NEGATIVE); URINE TOTAL PROTEIN (Dip) NEGATIVE (NEGATIVE); URINE UROBILINOGEN (Dip) 0.2 E.U./dL (0.1-1.0)
[2016-10-09] MEDS: SALMETEROL/FLUTICASONE 250/50 INHA INH SCH ×2 (09:45→21:15)
[2016-10-09] MEDS: DOCUSATE SODIUM 100 MG CAP PO SCH ×2 (09:48→21:15)
[2016-10-09] MEDS: AMLODIPINE 5 MG TAB PO SCH (09:49)
[2016-10-09 09:50] LABS: BACTERIA,URINE RARE; URINE RBCS 0-2 /HPF (0)
[2016-10-09] MEDS ORDERED: AL HYDROX/MG HYDROX/SIMETH 30 ML CUP PO ONE (13:30)
[2016-10-09] MEDS ORDERED: AL HYDROX/MG HYDROX/SIMETH 30 ML CUP PO PRN (13:30)
--- NOTE | 2016-10-09 13:33 | PN ---
Date/Time of Note Date/Time of Note DATE: 10/09/16 TIME: 13:27 Assessment/Plan VTE Prophylaxis VTE Prophylaxis Intervention: other (coumadin ) Lines/Catheters IV Catheter Type (from Nrsg): Peripheral IV Urinary Cath still in place: Yes Reason Cath still needed: other (indicate) (plan is to d/c ) Assessment/Plan Assessment/Plan 1. Post operative chest pain 2. RIght Hip OA s/p Total hip arthroplasty POD # 1 3. H/o Asthma 4. H/o DVT Plan: troponin and EKG negative mylanta for pain and then prn BP stable D/c IVF coumadin advance diet to regular diet, Ok to have home food Subjective 24 Hr Interval Summary Free Text/Dictation c/o chest discomfort, no SOB, doing spirometry Exam/Review of Systems Vital Signs Vitals Vital Signs Date Time Temp Pulse Resp B/P Pulse Ox O2 Delivery O2 Flow Rate FiO2 10/09/16 12:00 67 10/09/16 11:24 98.3 16 123/65 98 10/09/16 09:44 2.0 10/08/16 21:00 Nasal Cannula Intake and Output 10/08/16 10/08/16 10/09/16 15:00 23:00 07:00 Intake Total 3017.7 ml 158.6 ml 3337.5 ml Output Total 450 ml 1200 ml 3040 ml Balance 2567.7 ml -1041.4 ml 297.5 ml Exam laying in bed, uncomfortable at times no carotid bruits rrr no mrg no ttp over costochondral joints lungs clear abd soft R surgical site c/d/i no le edema no rashes responds to questions appropriately moves exts freely woundvac from R hip with serosang drainage Results Result Diagram: 10/09/16 0538 10/09/16 0538 Results 24 hrs Laboratory Tests Test 10/08/16 16:50 10/08/16 20:00 10/09/16 02:14 10/09/16 05:38 Creatine Kinase 254 H 275 H Creatine Kinase Index 0.7 0.7 Creatinine Kinase MB (Mass) 1.89 1.90 Troponin I < 0.012 < 0.012 < 0.012 Hemoglobin 9.6 #L Hematocrit 28.6 #L Prothrombin Time 13.4 Prothrombin Time Ratio 1.0 INR International Normalized Ratio 1.02 Sodium Level 134 L Potassium Level 4.4 Chloride Level 100 # Carbon Dioxide Level 25 Anion Gap 13 # Blood Urea Nitrogen 8 Creatinine 0.49 Glucose Level 184 Calcium Level 8.5 Test 10/09/16 06:30 10/09/16 09:20 Urine Color LT. YELLOW Urine Clarity CLEAR Urine pH 6.0 Urine Specific [place] <=1.005 L Urine Ketones NEGATIVE Urine Nitrite NEGATIVE Urine Bilirubin NEGATIVE Urine Urobilinogen 0.2 E.U./dL Urine Leukocyte Esterase NEGATIVE Urine Microscopic RBC 0-2 Urine Microscopic WBC 0-2 Urine Bacteria RARE Urine Hemoglobin 1+ H Urine Glucose NEGATIVE Urine Total Protein NEGATIVE Troponin I < 0.012 Medications Medications Current Medications Albuterol (Ventolin Hfa) 2 puff Q6 INH Last administered on 10/09/16 06:18; Admin Dose 2 PUFF; Start 10/08/16 at 12:00 Amlodipine Besylate (Norvasc) 5 mg DAILY PO Last administered on 10/09/16 09:49 ; Admin Dose 5 MG; Start 10/09/16 at 09:00 Benzonatate (Tessalon) 200 mg Q8H PRN PO COUGH Last administered on 10/09/16 05 :17; Admin Dose 200 MG; Start 10/08/16 at 13:00 Montelukast Sodium (Singulair) 10 mg HS PO Last administered on 10/08/16 21:21 ; Admin Dose 10 MG; Start 10/08/16 at 21:00 Salmeterol Xinafoate/ Fluticasone (Advair 250/50 Diskus) 1 inh BID INH Last administered on 10/09/16 09:45; Admin Dose 1 INH; Start 10/08/16 at 21:00 Valsartan (Diovan) 80 mg DAILY PO ; Start 10/09/16 at 09:00 Tramadol HCl (Ultram) 50 mg Q6 PO Last administered on 10/09/16 06:14; Admin Dose 50 MG; Start 10/08/16 at 12:00; Stop 10/11/16 at 11:59 Acetaminophen/ Hydrocodone Bitart ([place] (5/325)) 1 tab Q4H PRN PO PAIN LEVEL 1 -3 Last administered on 10/09/16 00:26; Admin Dose 1 TAB; Start 10/08/16 at 10:00 Acetaminophen/ Hydrocodone Bitart ([place] (5/325)) 2 tab Q4H PRN PO PAIN LEVEL 4 -7 Last administered on 10/09/16 09:48; Admin Dose 2 TAB; Start 10/08/16 at 10:00 Hydromorphone HCl (Dilaudid) 1 mg Q3H PRN IV PAIN LEVEL 8-10 Last administered on 10/08/16 12:18; Admin Dose 1 MG; Start 10/08/16 at 10:00 Ondansetron HCl (Zofran Inj) 4 mg Q6H PRN IV NAUSEA AND/OR VOMITING; Start 10/08 at 10:00 Bisacodyl (Dulcolax Supp) 10 mg Q12H PRN [place] CONSTIPATION; Start 10/08/16 at 10: 00 Magnesium Hydroxide (Milk Of Mag) 30 ml BID PRN PO CONSTIPATION; Start 10/08/16 at 10:00 Sodium Biphosphate/ Sodium Phosphate (Fleet Enema) 133 ml DAILY PRN [place] CONSTIPATION; Start 10/08/16 at 10:00 Docusate Sodium (Colace) 100 mg BID PO Last administered on 10/09/16 09:48; Admin Dose 100 MG; Start 10/08/16 at 21:00 Diphenhydramine HCl (Benadryl) 25 mg Q6H PRN PO PRURITUS; Start 10/08/16 at 10: 00 Pantoprazole (Protonix Tab) 40 mg BID@06,18 PO Last administered on 10/09/16 05 :17; Admin Dose 40 MG; Start 10/08/16 at 18:00 Warfarin Sodium (Coumadin) 3 mg ONCE@17 ONCE PO ; Start 10/09/16 at 17:00; Stop 10/09/16 at 17:01 Al Hydrox/Mg Hydrox/Simethicone (Mag-Al Plus) 30 ml ONCE ONCE PO ; Start at 13:30; Stop 10/09/16 at 13:31 Al Hydrox/Mg Hydrox/Simethicone (Mag-Al Plus) 30 ml Q4H PRN PO GASTROINTESTINAL UPSET; Start 10/09/16 at 13:30 JENNI HERNANDEZ MD Oct 09, 2016 13:33
[2016-10-09] MEDS ORDERED: WARFARIN 3 MG TAB PO ONE (17:00)
[2016-10-09] MEDS: MONTELUKAST 10 MG TAB PO SCH (21:15)
[2016-10-10] VITALS (11 sets, daily range): BP systolic 100–123; BP diastolic 52–59; PULSE 73–93; RESP 15–18
[2016-10-10] MEDS: traMADol 50 MG TAB PO SCH ×5 (00:42→18:00)
[2016-10-10] MEDS: HYDROCODONE/APAP (5/325) TAB PO PRN ×2 (04:09→23:00)
[2016-10-10] MEDS: PANTOPRAZOLE (EC) 40 MG TAB PO SCH ×2 (05:21→17:34)
[2016-10-10] MEDS: ALBUTEROL 18 GM INHALER INH SCH ×3 (05:21→18:00)
[2016-10-10 07:00] LABS: HEMATOCRIT 30.8 % (37.0-47.0); HEMOGLOBIN 9.8 g/dl (12.0-16.0)
[2016-10-10 07:24] LABS: CALCIUM 8.5 mg/dl (8.4-10.2); CREATININE 0.54 mg/dl (0.44-1.00); POTASSIUM 4.3 mmol/L (3.5-5.1)
[2016-10-10 07:29] LABS: INR 1.07; PROTIME 13.9 Sec (12.2-14.2); PT RATIO 1.1
--- NOTE | 2016-10-10 08:58 | PN ---
Date/Time of Note Date/Time of Note DATE: 10/10/16 TIME: 08:54 Assessment/Plan VTE Prophylaxis VTE Prophylaxis Intervention: ambulation, SCD's, other (On Coumadin) Lines/Catheters IV Catheter Type (from Nrsg): Saline Lock Ramirez in Place (from Nrsg): Yes Assessment/Plan Assessment/Plan -Pain Meds as needed. Switch pain medication of [place] 5/325 mg to [place] 7.5/ 325 mg for use as needed every 4-6 hours as needed for pain. Orders placed in [facility]. -Dress change performed today -OOB with PT -Coumadin dose has been adjusted by Dr. Velasquez. -Continue daily PT/INR labs -Continue monitoring with Internal Medicine -Patient Stable -Patient is okay to transfer to [facility] on [address] 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 Rodrigues prior to transfer. Subjective 24 Hr Interval Summary 61-year-old female postop day 2 status post right total hip arthroplasty via anterior route. Patient is currently on telemetry unit being monitored for chest pain. No acute cardiac events. In regards to her right hip, she experiences pain to the right hip and low back that she states is usually at night when changing of position from supine to sitting and from rising from a seated position to standing when she goes to the bathroom. Pain can be an 8/10 on the pain scale. She states that pain medications in regards to [place] 5/325 mg help relieve her pain during those exacerbations. No falls or complications status post hip surgery. Denies any calf pain. Denies any chest pain/ tightness at this time. No shortness of breath. Exam/Review of Systems Vital Signs Vitals Vital Signs Date Time Temp Pulse Resp B/P Pulse Ox O2 Delivery O2 Flow Rate FiO2 10/10/16 08:45 73 10/10/16 04:00 98.1 15 112/59 96 10/09/16 09:44 2.0 10/08/16 21:00 Nasal Cannula Intake and Output 10/09/16 10/09/16 10/10/16 15:00 23:00 07:00 Intake Total 1080 ml 480 ml Output Total 1500 ml Balance 1080 ml -1020 ml Exam Free Text/Dictation -Hemovac: Removed -Incision: Clean, Dry and Intact without any redness or drainage -Thigh soft -5/5 Quadriceps, Tibialis Anterior, EHL Gastrocnemius/Soleus and Peroneals -Normal Sensation -Palpable DP/PT, Capillary Refill <2 secs -No Distal Edema -Negative Mar Sign/No calf pain -Toes Freely Movable Constitutional: alert, oriented Results Result Diagram: 10/10/16 0552 10/10/16 0624 FELIX MARK PA-C Oct 10, 2016 08:58
[2016-10-10] MEDS: AMLODIPINE 5 MG TAB PO SCH (09:14)
[2016-10-10] MEDS: VALSARTAN 80 MG TAB PO SCH (09:15)
[2016-10-10] MEDS: SALMETEROL/FLUTICASONE 250/50 INHA INH SCH ×2 (09:15→21:11)
[2016-10-10] MEDS: DOCUSATE SODIUM 100 MG CAP PO SCH ×2 (09:15→21:12)
[2016-10-10] MEDS: HYDROCODONE/APAP (7.5/325) TAB PO PRN ×2 (13:44→19:06)
--- NOTE | 2016-10-10 14:21 | PN ---
Date/Time of Note Date/Time of Note DATE: 10/10/16 TIME: 14:06 Assessment/Plan VTE Prophylaxis VTE Prophylaxis Intervention: SCD's, other (coumadin) Lines/Catheters IV Catheter Type (from Nrsg): Saline Lock Urinary Cath still in place: Yes Reason Cath still needed: other (indicate) (d/c catheter today ) Assessment/Plan Assessment/Plan 1. Post operative chest pain- work up negative 2. RIght Hip OA s/p Total hip arthroplasty POD # 2 3. H/o Asthma 4. H/o DVT Plan: troponin and EKG negative mylanta for pain and then prn BP stable coumadin transfer to med/surge floor Subjective 24 Hr Interval Summary Free Text/Dictation c/o right hip pain, BP stable, afebrile Exam/Review of Systems Vital Signs Vitals Vital Signs Date Time Temp Pulse Resp B/P Pulse Ox O2 Delivery O2 Flow Rate FiO2 10/10/16 12:27 93 10/10/16 12:00 98.2 17 123/59 94 10/09/16 09:44 2.0 10/08/16 21:00 Nasal Cannula Intake and Output 10/09/16 10/09/16 10/10/16 15:00 23:00 07:00 Intake Total 1080 ml 480 ml Output Total 1500 ml Balance 1080 ml -1020 ml Exam laying in bed, uncomfortable at times no carotid bruits rrr no mrg no ttp over costochondral joints lungs clear abd soft R surgical site c/d/i no le edema no rashes responds to questions appropriately moves exts freely wound vac discharge Results Result Diagram: 10/10/16 0552 10/10/16 0624 Results 24 hrs Laboratory Tests Test 10/10/16 05:52 10/10/16 06:24 Hemoglobin 9.8 L Hematocrit 30.8 L Prothrombin Time 13.9 Prothrombin Time Ratio 1.1 INR International Normalized Ratio 1.07 Sodium Level 139 Potassium Level 4.3 Chloride Level 102 Carbon Dioxide Level 31 Anion Gap 10 Blood Urea Nitrogen 9 Creatinine 0.54 Glucose Level 107 # Calcium Level 8.5 Medications Medications Current Medications Albuterol (Ventolin Hfa) 2 puff Q6 INH Last administered on 10/10/16t 05:21; Admin Dose 2 PUFF; Start 10/08/16 at 12:00 Amlodipine Besylate (Norvasc) 5 mg DAILY PO Last administered on 10/10/16 09:14 ; Admin Dose 5 MG; Start 10/09/16 at 09:00 Benzonatate (Tessalon) 200 mg Q8H PRN PO COUGH Last administered on 10/09/16 05 :17; Admin Dose 200 MG; Start 10/08/16 at 13:00 Montelukast Sodium (Singulair) 10 mg HS PO Last administered on 10/09/16 21:15 ; Admin Dose 10 MG; Start 10/08/16 at 21:00 Salmeterol Xinafoate/ Fluticasone (Advair 250/50 Diskus) 1 inh BID INH Last administered on 10/10/16 09:15; Admin Dose 1 INH; Start 10/08/16 at 21:00 Valsartan (Diovan) 80 mg DAILY PO Last administered on 10/10/16 09:15; Admin Dose 80 MG; Start 10/09/16 at 09:00 Tramadol HCl (Ultram) 50 mg Q6 PO Last administered on 10/10/16 05:21; Admin Dose 50 MG; Start 10/08/16 at 12:00; Stop 10/11/16 at 11:59 Acetaminophen/ Hydrocodone Bitart ([place] (5/325)) 1 tab Q4H PRN PO PAIN LEVEL 1 -3 Last administered on 10/10/16 04:09; Admin Dose 1 TAB; Start 10/08/16 at 10:00 Acetaminophen/ Hydrocodone Bitart ([place] (5/325)) 2 tab Q4H PRN PO PAIN LEVEL 4 -7 Last administered on 10/09/16 23:34; Admin Dose 2 TAB; Start 10/08/16 at 10:00 Hydromorphone HCl (Dilaudid) 1 mg Q3H PRN IV PAIN LEVEL 8-10 Last administered on 10/08/16 12:18; Admin Dose 1 MG; Start 10/08/16 at 10:00 Ondansetron HCl (Zofran Inj) 4 mg Q6H PRN IV NAUSEA AND/OR VOMITING; Start 10/08 at 10:00 Bisacodyl (Dulcolax Supp) 10 mg Q12H PRN [place] CONSTIPATION; Start 10/08/16 at 10: 00 Magnesium Hydroxide (Milk Of Mag) 30 ml BID PRN PO CONSTIPATION; Start 10/08/16 at 10:00 Sodium Biphosphate/ Sodium Phosphate (Fleet Enema) 133 ml DAILY PRN [place] CONSTIPATION; Start 10/08/16 at 10:00 Docusate Sodium (Colace) 100 mg BID PO Last administered on 10/10/16 09:15; Admin Dose 100 MG; Start 10/08/16 at 21:00 Diphenhydramine HCl (Benadryl) 25 mg Q6H PRN PO PRURITUS; Start 10/08/16 at 10: 00 Pantoprazole (Protonix Tab) 40 mg BID@06,18 PO Last administered on 10/10/16 05 :21; Admin Dose 40 MG; Start 10/08/16 at 18:00 Al Hydrox/Mg Hydrox/Simethicone (Mag-Al Plus) 30 ml Q4H PRN PO GASTROINTESTINAL UPSET Last administered on 10/09/16 14:28; Admin Dose 30 ML; Start 10/09/16 at 13:30 Warfarin Sodium (Coumadin) 5 mg ONCE@17 ONCE PO ; Start 10/10/16 at 17:00; Stop 10/10/16 at 17:01 Acetaminophen/ Hydrocodone Bitart ([place] (7.5-325)) 1 tab Q4H PRN PO Pain Last administered on 10/10/16 13:44; Admin Dose 1 TAB; Start 10/10/16 at 09:00 JENNI HERNANDEZ MD Oct 10, 2016 14:21
[2016-10-10] MEDS ORDERED: WARFARIN 5 MG TAB PO ONE (17:00)
[2016-10-10] MEDS: MONTELUKAST 10 MG TAB PO SCH (21:12)
[2016-10-11] VITALS (11 sets, daily range): BP systolic 108–143; BP diastolic 56–66; PULSE 85–101; RESP 15–19
[2016-10-11] MEDS: ALBUTEROL 18 GM INHALER INH SCH ×5 (06:00→23:48)
[2016-10-11] MEDS: traMADol 50 MG TAB PO SCH ×2 (06:00)
[2016-10-11] MEDS: PANTOPRAZOLE (EC) 40 MG TAB PO SCH ×2 (06:41→18:11)
[2016-10-11] MEDS: VALSARTAN 80 MG TAB PO SCH (08:13)
[2016-10-11] MEDS: AMLODIPINE 5 MG TAB PO SCH (08:13)
[2016-10-11] MEDS: SALMETEROL/FLUTICASONE 250/50 INHA INH SCH ×2 (08:13→21:16)
[2016-10-11] MEDS: DOCUSATE SODIUM 100 MG CAP PO SCH ×2 (08:13→21:16)
[2016-10-11] MEDS: HYDROCODONE/APAP (7.5/325) TAB PO PRN ×3 (09:17→18:12)
--- NOTE | 2016-10-11 10:22 | PN ---
Date/Time of Note Date/Time of Note DATE: 10/11/16 TIME: 10:14 Assessment/Plan VTE Prophylaxis VTE Prophylaxis Intervention: ambulation, SCD's, other (On Coumadin) Lines/Catheters IV Catheter Type (from Nrsg): Saline Lock Ramirez in Place (from Nrsg): Yes Assessment/Plan Assessment/Plan -Pain Meds as needed -If milk of magnesia is not effective, patient may take a suppository that has already been ordered. New order for senna 2 tablets p.o. as needed for constipation also ordered. If suppository is not effective she will try senna. Plan discussed with Dr. Velasquez and he is aware. -Dress change performed today -OOB with PT -Coumadin/SCDs for DVT Prophylaxis -Continue monitoring with Internal Medicine -Patient Stable -Discussed with charge nurse on fifth floor telemetry unit as well as charge nurse on [address] and requested immediate transfer to medical surgical floor if there is a bed available. Patient has been cleared from cardiology standpoint as well as by physical therapy for transfer and it is [facility] care and monitoring status post total hip arthroplasty to the right side. We will continue coordinating and [address] charge nurse is aware and currently arranging for transfer. Will contact me when transfer is confirmed. Dr. Velasquez. -Stat coags also ordered for updated PT/INR. Will contact Dr. Velasquez with results. Subjective 24 Hr Interval Summary 61-year-old female postop day 3 status post right total hip arthroplasty via anterior route. Pain medication was changed from [place] 5/325 to [place] 7.5/325. Patient continues experiencing pain that she attributes to her constipation. Denies any bloating but states that she has not had bowel movement since 24 hours prior to surgery. She feels that when she strains she experiences pain to the greater trochanteric region of the operative hip. While speaking with patient she is taking milk of magnesia. Patient states that she usually takes 2 -3 tablets of senna at home as she has had issues with constipation in the past and senna typically helps. Has yet to receive suppository, per patient account. Patient is up and out of bed with physical therapy walking about 35 feet. Experience episode of dizziness with PT. Denies any nausea or vomiting. Normal p.o. intake. In regards to the right hip she continues to improve in regards to functionality with physical therapy. Denies any chest pain symptoms. Patient cleared from cardiology perspective by Dr. Arthur. Patient also cleared by physical therapy for transfer to [facility] medical surgical floor. Exam/Review of Systems Vital Signs Vitals Vital Signs Date Time Temp Pulse Resp B/P Pulse Ox O2 Delivery O2 Flow Rate FiO2 10/11/16 08:10 101 10/11/16 07:30 98.4 16 129/60 95 10/09/16 09:44 2.0 10/08/16 21:00 Nasal Cannula Intake and Output 10/10/16 10/10/16 10/11/16 15:00 23:00 07:00 Intake Total 450 ml Balance 450 ml Exam Free Text/Dictation -Hemovac: Removed -Incision: Clean, Dry and Intact without any redness or drainage -Thigh soft -5/5 Quadriceps, Tibialis Anterior, EHL Gastrocnemius/Soleus and Peroneals -Normal Sensation -Palpable DP/PT, Capillary Refill <2 secs -No Distal Edema -Negative Mar Sign/No calf pain -Toes Freely Movable Constitutional: alert, oriented, well developed Results Result Diagram: 10/10/16 0552 10/10/16 0624 FELIX MARK PA-C Oct 11, 2016 10:22
[2016-10-11] MEDS ORDERED: SENNA TAB PO PRN (10:30)
[2016-10-11 11:56] LABS: INR 1.17; PT RATIO 1.2
--- NOTE | 2016-10-11 14:37 | PN ---
Date/Time of Note Date/Time of Note DATE: 10/11/16 TIME: 14:35 Assessment/Plan VTE Prophylaxis VTE Prophylaxis Intervention: other (coumadin ) Lines/Catheters IV Catheter Type (from Nrsg): Saline Lock Urinary Cath still in place: No Assessment/Plan Assessment/Plan 1. Post operative chest pain- work up negative 2. RIght Hip OA s/p Total hip arthroplasty POD # 2 3. H/o Asthma 4. H/o DVT Plan: pain controlled, toleratign diet Tele normal, downgarded to med/surge floor orthopedic following pt on coumadin for previous LE DVT no SCD please Subjective 24 Hr Interval Summary Free Text/Dictation doing better, pain controlled, downgarded to med/surge floor, tolerating po diet well Exam/Review of Systems Vital Signs Vitals Vital Signs Date Time Temp Pulse Resp B/P Pulse Ox O2 Delivery O2 Flow Rate FiO2 10/11/16 12:07 86 10/11/16 11:32 99.2 16 108/56 91 10/09/16 09:44 2.0 10/08/16 21:00 Nasal Cannula Intake and Output 10/10/16 10/10/16 10/11/16 15:00 23:00 07:00 Intake Total 450 ml Balance 450 ml Exam Constitutional: alert Psych: no complaints Head: normocephalic Neck: supple Respiratory: clear to auscultation Cardiovascular: regular rate and rhythm Gastrointestinal: soft Extremities: normal pulses Results Result Diagram: 10/10/16 0552 10/10/16 0624 Results 24 hrs Laboratory Tests Test 10/11/16 11:00 Prothrombin Time 15.0 H Prothrombin Time Ratio 1.2 INR International Normalized Ratio 1.17 Medications Medications Current Medications Albuterol (Ventolin Hfa) 2 puff Q6 INH Last administered on 10/10/16 17:36; Admin Dose 2 PUFF; Start 10/08/16 at 12:00 Amlodipine Besylate (Norvasc) 5 mg DAILY PO Last administered on 10/11/16 08:13 ; Admin Dose 5 MG; Start 10/09/16 at 09:00 Benzonatate (Tessalon) 200 mg Q8H PRN PO COUGH Last administered on 10/09/16 05 :17; Admin Dose 200 MG; Start 10/08/16 at 13:00 Montelukast Sodium (Singulair) 10 mg HS PO Last administered on 10/10/16 21:12 ; Admin Dose 10 MG; Start 10/08/16 at 21:00 Salmeterol Xinafoate/ Fluticasone (Advair 250/50 Diskus) 1 inh BID INH Last administered on 10/10/16 21:11; Admin Dose 1 INH; Start 10/08/16 at 21:00 Valsartan (Diovan) 80 mg DAILY PO Last administered on 10/11/16 08:13; Admin Dose 80 MG; Start 10/09/16 at 09:00 Acetaminophen/ Hydrocodone Bitart ([place] (5/325)) 1 tab Q4H PRN PO PAIN LEVEL 1 -3 Last administered on 10/10/16 04:09; Admin Dose 1 TAB; Start 10/08/16 at 10:00 Acetaminophen/ Hydrocodone Bitart ([place] (5/325)) 2 tab Q4H PRN PO PAIN LEVEL 4 -7 Last administered on 10/10/16 23:00; Admin Dose 2 TAB; Start 10/08/16 at 10:00 Hydromorphone HCl (Dilaudid) 1 mg Q3H PRN IV PAIN LEVEL 8-10 Last administered on 10/08/16 12:18; Admin Dose 1 MG; Start 10/08/16 at 10:00 Ondansetron HCl (Zofran Inj) 4 mg Q6H PRN IV NAUSEA AND/OR VOMITING; Start 10/08 at 10:00 Bisacodyl (Dulcolax Supp) 10 mg Q12H PRN [place] CONSTIPATION; Start 10/08/16 at 10: 00 Magnesium Hydroxide (Milk Of Mag) 30 ml BID PRN PO CONSTIPATION Last administered on 10/11/16 08:12; Admin Dose 30 ML; Start 10/08/16 at 10:00 Sodium Biphosphate/ Sodium Phosphate (Fleet Enema) 133 ml DAILY PRN [place] CONSTIPATION; Start 10/08/16 at 10:00 Docusate Sodium (Colace) 100 mg BID PO Last administered on 10/11/16 08:13; Admin Dose 100 MG; Start 10/08/16 at 21:00 Diphenhydramine HCl (Benadryl) 25 mg Q6H PRN PO PRURITUS; Start 10/08/16 at 10: 00 Pantoprazole (Protonix Tab) 40 mg BID@06,18 PO Last administered on 10/11/16 06 :41; Admin Dose 40 MG; Start 10/08/16 at 18:00 Al Hydrox/Mg Hydrox/Simethicone (Mag-Al Plus) 30 ml Q4H PRN PO GASTROINTESTINAL UPSET Last administered on 10/09/16 14:28; Admin Dose 30 ML; Start 10/09/16 at 13:30 Acetaminophen/ Hydrocodone Bitart ([place] (7.5-325)) 1 tab Q4H PRN PO Pain Last administered on 10/11/16 13:57; Admin Dose 1 TAB; Start 10/10/16 at 09:00 Senna (Senokot) 2 tab DAILY PRN PO CONSTIPATION Last administered on 10/11/16 10:47; Admin Dose 2 TAB; Start 10/11/16 at 10:30 JENNI HERNANDEZ MD Oct 11, 2016 14:37
[2016-10-11] MEDS ORDERED: WARFARIN 5 MG TAB PO ONE (17:00)
[2016-10-11] MEDS: MONTELUKAST 10 MG TAB PO SCH (21:16)
[2016-10-11] MEDS: HYDROCODONE/APAP (5/325) TAB PO PRN (21:58)
[2016-10-12] MEDS: PANTOPRAZOLE (EC) 40 MG TAB PO SCH ×2 (05:29→18:24)
[2016-10-12] MEDS: ALBUTEROL 18 GM INHALER INH SCH ×3 (05:29→18:00)
[2016-10-12 05:33] LABS: ADD SCAN DIFF NO; BASOPHILS % 0.2 % (0.0-2.0); EOSINOPHILS # 0.1 10^3/ul (0.0-0.5); EOSINOPHILS % 1.3 % (0.0-7.0); HEMATOCRIT 33.4 % (37.0-47.0); HEMOGLOBIN 10.7 g/dl (12.0-16.0); LYMPHOCYTES # 1.6 10^3/ul (0.8-2.9); LYMPHOCYTES % 26.2 % (15.0-51.0); MEAN CORPUSCULAR HEMOGLOBIN 30.4 pg (29.0-33.0); MEAN CORPUSCULAR VOLUME 94.9 fl (82.0-101.0); MEAN PLATELET VOLUME 11.3 fl (7.4-10.4); MONOCYTE # 0.6 10^3/ul (0.3-0.9); NEUTROPHIL # 3.8 10^3/ul (1.6-7.5); PLATELET COUNT 171 10^3/UL (140-415); RED BLOOD COUNT 3.52 10^6/ul (4.20-5.40); RED CELL DISTRIBUTION WIDTH 12.2 % (11.5-14.5); WHITE BLOOD COUNT 6.1 10^3/ul (4.8-10.8)
[2016-10-12 05:56] LABS: INR 1.18; PROTIME 15.1 Sec (12.2-14.2); PT RATIO 1.2
[2016-10-12 05:57] LABS: PARTIAL THROMBOPLASTIN TIME 38.3 Sec (25.0-35.0)
[2016-10-12 05:58] LABS: ALBUMIN 4.2 g/dl (3.3-4.9); ALBUMIN/GLOBULIN RATIO 1.55; BILIRUBIN,INDIRECT 0.4 mg/dl (0-1.1); BILIRUBIN,TOTAL 0.4 mg/dl (0.2-1.3); CALCIUM 9.1 mg/dl (8.4-10.2); CREATININE 0.51 mg/dl (0.44-1.00); POTASSIUM 4.4 mmol/L (3.5-5.1); TOTAL PROTEIN 6.9 g/dl (6.1-8.1)
[2016-10-12] MEDS: HYDROCODONE/APAP (5/325) TAB PO PRN ×3 (07:08→18:23)
[2016-10-12 08:13] VITALS: BP 107/55; PULSE 84; RESP 16
--- NOTE | 2016-10-12 08:39 | PN ---
Date/Time of Note Date/Time of Note DATE: 10/12/16 TIME: 08:38 Assessment/Plan Lines/Catheters IV Catheter Type (from Nrsg): Saline Lock Ramirez in Place (from Nrsg): No Assessment/Plan Assessment/Plan POD #4, s/p right anterior GABE -pain meds as needed -will switch from coumadin to Xarelto for DVT prophylaxis -SCDs bilateral LE -OOB with PT -dressing changed -d/c home today -follow up in the office in 1 week Subjective 24 Hr Interval Summary No acute overnight events. Pain improving. Progressing with PT. Denies f/c. VSS , afebrile. Will plan to go home today. Exam/Review of Systems Vital Signs Vitals Vital Signs Date Time Temp Pulse Resp B/P Pulse Ox O2 Delivery O2 Flow Rate FiO2 10/11/16 19:11 98.8 85 16 121/57 93 10/11/16 16:06 Room Air 10/09/16 09:44 2.0 Intake and Output 10/11/16 10/11/16 10/12/16 15:00 23:00 07:00 Intake Total 960 ml 980 ml Output Total 3 ml Balance 957 ml 980 ml Exam Free Text/Dictation Dressing dry Incision clean, dry, and intact without redness or drainage 5/5 Quadriceps, Tibialis Anterior, EHL, Gastroc, Soleus, Peroneals Normal sensation Palpable DT/PT, CR <2 sec No distal edema Results Result Diagram: 10/12/16 0420 10/12/16 042 SAURABH CHAVEZ PA-C Oct 12, 2016 08:39
[2016-10-12 08:51] VITALS: BP 115/59; RESP 18
[2016-10-12] MEDS: VALSARTAN 80 MG TAB PO SCH (09:00)
[2016-10-12] MEDS ORDERED: RIVAROXABAN 10 MG TABLET PO ONE (09:00)
[2016-10-12] MEDS: SALMETEROL/FLUTICASONE 250/50 INHA INH SCH (09:00)
[2016-10-12] MEDS: AMLODIPINE 5 MG TAB PO SCH (09:00)
[2016-10-12] MEDS: DOCUSATE SODIUM 100 MG CAP PO SCH (09:45)
[2016-10-12] MEDS ORDERED: DOCU-144 PO (11:43)
--- NOTE | 2016-10-12 16:27 | PN ---
Date/Time of Note Date/Time of Note DATE: 10/12/16 TIME: 16:24 Assessment/Plan VTE Prophylaxis VTE Prophylaxis Intervention: other (per surgeon recs ) Lines/Catheters IV Catheter Type (from Nrs): Saline Lock Urinary Cath still in place: No Assessment/Plan Chief Complaint/Hosp Course Assessment and plan 1. Right hip arthritis status post total hip arthroplasty. Continue with analgesics. Continue with physical therapy. 2. History of DVT. On anticoagulation. 3. Asthma. No active exacerbation at this time. Bronchodilators as needed. 4. Reported history of chest pain. Workup was negative. Monitor for now. Resolved at present. Disposition plan: Continue discharge planning. Continue with supportive care. Discussed plan of care with Dr. Bello Problems: Subjective 24 Hr Interval Summary Free Text/Dictation no s/s of distress. comfortable Exam/Review of Systems Vital Signs Vitals Vital Signs Date Time Temp Pulse Resp B/P Pulse Ox O2 Delivery O2 Flow Rate FiO2 10/12/16 08:51 99.0 85 18 115/59 95 10/12/16 08:13 Room Air 10/09/16 09:44 2.0 Intake and Output 10/11/16 10/11/16 10/12/16 15:00 23:00 07:00 Intake Total 960 ml 980 ml Output Total 3 ml Balance 957 ml 980 ml Exam Constitutional: alert, oriented Head: normocephalic Respiratory: clear to auscultation, normal air movement Cardiovascular: regular rate and rhythm Gastrointestinal: non-tender, soft Musculoskeletal: other (s/p orif on right side, dressing cdi ) Extremities: normal pulses 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, nl mental status, nl speech Results Result Diagram: 10/12/16 0420 10/12/16 0420 Results 24 hrs Laboratory Tests Test 10/12/16 04:20 10/12/16 04:30 White Blood Count 6.1 # Red Blood Count 3.52 L Hemoglobin 10.7 L Hematocrit 33.4 L Mean Corpuscular Volume 94.9 Mean Corpuscular Hemoglobin 30.4 Mean Corpuscular Hemoglobin Concent 32.0 Red Cell Distribution Width 12.2 Platelet Count 171 Mean Platelet Volume 11.3 #H Neutrophils % 63.0 Lymphocytes % 26.2 Monocytes % 9.0 Eosinophils % 1.3 Basophils % 0.2 Nucleated Red Blood Cells % 0.0 Neutrophils # 3.8 Lymphocytes # 1.6 Monocytes # 0.6 Eosinophils # 0.1 Basophils # 0.0 Nucleated Red Blood Cells # 0.0 Sodium Level 139 Potassium Level 4.4 Chloride Level 103 Carbon Dioxide Level 28 Anion Gap 12 Blood Urea Nitrogen 7 Creatinine 0.51 Glucose Level 123 Calcium Level 9.1 Total Bilirubin 0.4 Direct Bilirubin 0.00 Indirect Bilirubin 0.4 Aspartate Amino Transf (AST/SGOT) 29 Alanine Aminotransferase (ALT/SGPT) 45 Alkaline Phosphatase 59 Total Protein 6.9 Albumin 4.2 Globulin 2.70 Albumin/Globulin Ratio 1.55 Prothrombin Time 15.1 H Prothrombin Time Ratio 1.2 INR International Normalized Ratio 1.18 Activated Partial Thromboplast Time 38.3 H Medications Medications Current Medications Albuterol (Ventolin Hfa) 2 puff Q6 INH Last administered on 10/10/16 17:36; Admin Dose 2 PUFF; Start 10/08/16 at 12:00 Amlodipine Besylate (Norvasc) 5 mg DAILY PO Last administered on 10/11/16 08:13 ; Admin Dose 5 MG; Start 10/09/16 at 09:00 Benzonatate (Tessalon) 200 mg Q8H PRN PO COUGH Last administered on 10/09/16 05 :17; Admin Dose 200 MG; Start 10/08/16 at 13:00 Montelukast Sodium (Singulair) 10 mg HS PO Last administered on 10/11/16 21:16 ; Admin Dose 10 MG; Start 10/08/16 at 21:00 Salmeterol Xinafoate/ Fluticasone (Advair 250/50 Diskus) 1 inh BID INH Last administered on 10/11/16 21:16; Admin Dose 1 INH; Start 10/08/16 at 21:00 Valsartan (Diovan) 80 mg DAILY PO Last administered on 10/11/16 08:13; Admin Dose 80 MG; Start 10/09/16 at 09:00 Acetaminophen/ Hydrocodone Bitart (Bim (5/325)) 1 tab Q4H PRN PO PAIN LEVEL 1 -3 Last administered on 10/10/16 04:09; Admin Dose 1 TAB; Start 10/08/16 at 10:00 Acetaminophen/ Hydrocodone Bitart (Bim (5/325)) 2 tab Q4H PRN PO PAIN LEVEL 4 -7 Last administered on 10/12/16 12:03; Admin Dose 2 TAB; Start 10/08/16 at 10:00 Hydromorphone HCl (Dilaudid) 1 mg Q3H PRN IV PAIN LEVEL 8-10 Last administered on 10/08/16 12:18; Admin Dose 1 MG; Start 10/08/16 at 10:00 Ondansetron HCl (Zofran Inj) 4 mg Q6H PRN IV NAUSEA AND/OR VOMITING; Start 10/08 at 10:00 Bisacodyl (Dulcolax Supp) 10 mg Q12H PRN IN CONSTIPATION; Start 10/08/16 at 10: 00 Magnesium Hydroxide (Milk Of Mag) 30 ml BID PRN PO CONSTIPATION Last administered on 10/11/16 08:12; Admin Dose 30 ML; Start 10/08/16 at 10:00 Sodium Biphosphate/ Sodium Phosphate (Fleet Enema) 133 ml DAILY PRN IN CONSTIPATION; Start 10/08/16 at 10:00 Docusate Sodium (Colace) 100 mg BID PO Last administered on 10/12/16 09:45; Admin Dose 100 MG; Start 10/08/16 at 21:00 Diphenhydramine HCl (Benadryl) 25 mg Q6H PRN PO PRURITUS; Start 10/08/16 at 10: 00 Pantoprazole (Protonix Tab) 40 mg BID@06,18 PO Last administered on 10/12/16 05 :29; Admin Dose 40 MG; Start 10/08/16 at 18:00 Al Hydrox/Mg Hydrox/Simethicone (Mag-Al Plus) 30 ml Q4H PRN PO GASTROINTESTINAL UPSET Last administered on 10/09/16 14:28; Admin Dose 30 ML; Start 10/09/16 at 13:30 Acetaminophen/ Hydrocodone Bitart (Bim (7.5-325)) 1 tab Q4H PRN PO Pain Last administered on 10/11/16 18:12; Admin Dose 1 TAB; Start 10/10/16 at 09:00 Senna (Senokot) 2 tab DAILY PRN PO CONSTIPATION Last administered on 10/11/16 10:47; Admin Dose 2 TAB; Start 10/11/16 at 10:30 LANCE KATZ Oct 12, 2016 16:26
--- NOTE | 2016-10-12 21:00 | DS ---
DATE OF ADMISSION: 10/08/2016 DATE OF DISCHARGE: 10/12/2016 CONDITION ON DISCHARGE: Stable. ADMITTING DIAGNOSIS: Right hip osteoarthritis. DISCHARGE DIAGNOSIS: Status post right anterior total hip arthroplasty. PROCEDURE PERFORMED: Right anterior total hip arthroplasty. HOSPITAL COURSE: This is a 61-year-old female who was seen in the clinic initially complaining of right hip and groin pain. X-rays demonstrated advanced osteoarthritis of the right hip and it was thought she would benefit from right anterior total hip arthroplasty. On 10/08/2016, the patient was admitted and taken to the operating room where she underwent a right anterior total hip arthroplasty. There were no intraoperative complications. The patient tolerated the procedure well. She was taken to the recovery room in stable condition. She was started on Coumadin and SCDs for DVT prophylaxis. She remained hemodynamically stable and neurovascularly intact throughout her hospital stay. She did develop some chest pain postoperatively and was monitored for several days on telemetry floor. Her serial troponins as well as a chest x-ray and EKG were all within normal limits. She worked with physical therapy throughout her hospital course and was ultimately deemed stable for discharge on postoperative day #4. Prior to discharge, the incision was inspected and noted to be clean, dry, and intact. Dressing changes were done prior to patient going home. LABORATORY ANALYSIS UPON DISCHARGE: Hemoglobin 10.7, hematocrit 32.4. Chemistry panel was within normal limits. INR was 1.18. DISCHARGE MEDICATIONS: 1. [place] 7.5/325 mg. 2. Tramadol 50 mg. 3. Xarelto 10 mg. We will switch her off her Coumadin to Xarelto for DVT prophylaxis. Additionally, the patient should resume all of her other normal home medication. DISCHARGE INSTRUCTIONS: The patient will be discharged home in stable condition. She is to resume a normal diet. She is weightbearing as tolerated on the surgical lower extremity. She will begin physical therapy with home health. She will be discharged home on the medication noted above and is to resume all her normal home medication. The patient is to call the office or go to the emergency room for any concerns including increased redness, swelling, drainage, fever, or any concerns regarding the operation or site of incision. FOLLOWUP: The patient is to follow up in the office on 10/19/2016. Dictated By: SAURABH LOPEZ/ZACKARY Conf#: [id number] DID#: [id number] PINA
== END 2016-10-12 18:40 | disposition home health service (06) | DRG 470 ==
LOC: REC 05:40 → MS1 10:55 → TEL 14:34 → UNDODISIN 10-10 18:55 → MS1 10-11 15:35
PROVIDERS: ADMIT Orthopaedic Surgery; ATTEND Orthopaedic Surgery
PROC: 0SR904A Replacement of Right Hip Joint with Ceramic on Polyethylene Synthetic Substitute, Uncemented, Open Approach (ICD-10-PCS; principal; 2016-10-08 07:00)
DX: M16.11 Unilateral primary osteoarthritis, right hip (principal); I10 Essential (primary) hypertension; Z79.82 Long term (current) use of aspirin; G89.18 Other acute postprocedural pain; R07.9 Chest pain, unspecified; J45.909 Unspecified asthma, uncomplicated; E03.9 Hypothyroidism, unspecified; F32.9 Major depressive disorder, single episode, unspecified; Z86.718 Personal history of other venous thrombosis and embolism; Z95.5 Presence of coronary angioplasty implant and graft
CPT/HCPCS: 72170; 73530; 80048; 80053; 81001; 82550; 82553; 84484; 85014; 85018; 85025; 85610; 85730; 86850; 86900; 86901; 86920; 87081; 87086; 88304; 88311; 93005; 93306; 97110; 97116; 97162; 97166; 97530; C1776; C9290; J0171; J0690; J0697; J0735; J1100; J1170; J1885; J2175; J2250; J2274; J2405; J2710; J3010; J3370; J7120

== ENCOUNTER → 2016-10-19 | Outpatient (CLI) | payer OTHER ==
[~2016-10-19] MED LIST changes: -ASPI-664 PO; -BENZ-5 PO; +DOCU-144 PO; -FAMO20TA18 PO; +HYDR-3498 PO; -IBUP-1542 PO; -LORA0.5T PO; +TRAM50TA2 PO
--- NOTE | 2016-10-19 11:31 | HKNOTE ---
DATE OF SERVICE: INTERVAL HISTORY: The patient presents today for her first postoperative evaluation. She is 10 days status post right anterior total hip arthroplasty. She is doing well overall. She is taking Xarelto for DVT prophylaxis. She has had no adverse events to medication. Additionally, she is taking tramadol and [place] for pain. Physical therapy has been by her house and worked with her on a few occasions. She denies any fevers or chills. She presents today for her first postoperative evaluation. PHYSICAL EXAMINATION: Today, she is alert and oriented x4 and in no acute distress. Exam of the incision demonstrates it to be clean, dry and intact. Marion are in place. She is ambulating with a front-wheeled walker. She has no pain with passive range of motion. There is no evidence of erythema, warmth , swelling, or drainage noted. Homans sign is negative. Compartments are soft. She is neurovascularly intact distally. IMAGING: X-rays of the right hip were obtained today and reviewed by me. They demonstrate good anatomic alignment with no fractures or dislocations identified. ASSESSMENT: Ten days status post right anterior total hip arthroplasty. PLAN: The wilman were removed today and Steri-Strips were applied. She is to continue Xarelto for 2 additional weeks for DVT prophylaxis. Additionally, she should continue physical therapy with home health. We will see her back in 4 weeks for repeat evaluation. If the patient has any concerns in the meantime, she should call the office. Dictated By: SAURABH GIRALDO for JITENDRA LOPEZ/ZACKARY Conf#: [id number] DID#: [id number] MTDCed
--- NOTE | 2016-10-19 11:40 | RADRPT ---
PROCEDURE: XR right hip. CLINICAL INDICATION: Hip pain TECHNIQUE: AP view available for review. COMPARISON: 10/08/2016 FINDINGS: There is a right total hip replacement. There is no evidence of loosening of the prosthesis. There i s no evidence of hardware failure. There is normal mineralization, architecture and alignment. No f ractures are identified. No osseous lesions are present. The joints are unremarkable. The soft ti ssues are unremarkable. IMPRESSION: Right total hip replacement Otherwise an unremarkable examination RPTAT: HGDB .Ashok Ceja MD, MD Date Time Electronically viewed and signed by .Ashok Ceja MD, on 10/19/2016 11:40 .B/
--- NOTE | 2016-10-19 11:40 | RADRPT ---
PROCEDURE: XR Pelvis. CLINICAL INDICATION: Hip pain TECHNIQUE: Single AP view performed. COMPARISON: 10/08/2016 FINDINGS: There is a right total hip replacement. There is no evidence of loosening of the prosthesis. No hard davidson failure is identified. There is moderate left hip osteoarthrosis. This is associated with joint space narrowing, subchondra l sclerosis and osteophytosis. There is normal osseous mineralization. No fractures or osseous les ions are identified. The soft tissues are unremarkable. IMPRESSION: Right total hip replacement. Moderate left hip osteoarthrosis. RPTAT: HGDB .Ashok Ceja MD, Date Time Electronically viewed and signed by .Ashok Ceja MD, on 10/19/2016 11:39 .B/
== END | disposition home or self-care (01) ==
LOC: HKI 09:14
PROVIDERS: ATTEND Orthopaedic Surgery
DX: Z47.1 Aftercare following joint replacement surgery (principal); Z96.641 Presence of right artificial hip joint
CPT/HCPCS: 72170; 73501

== ENCOUNTER → 2016-11-16 | Outpatient (CLI) | payer OTHER ==
--- NOTE | 2016-11-16 16:40 | RADRPT ---
PROCEDURE: XR Right hip and pelvis. CLINICAL INDICATION: Right hip pain. Pelvic pain. Postop. TECHNIQUE: Two views. Frontal pelvis and frontal right hip. COMPARISON: No prior studies are available for comparison. FINDINGS: There is no fracture or dislocation. The soft tissues are normal. There is a right hip total arthroplasty which appears satisfactory. There are degenerative changes of the left hip with joint space narrowing and osteophytes. There is no lytic or blastic lesion. The upper pelvis is not completely included on the image. IMPRESSION: 1. Satisfactory postoperative appearance of the right hip. 2. Moderate degenerative changes of the left hip. RPTAT: QQ .Elías Koenig MD, MD Date Time Electronically viewed and signed by .Elías Koenig MD, MD on 11/16/2016 16:40 .R/
== END | disposition home or self-care (01) ==
LOC: HKI 13:33
PROVIDERS: ATTEND Orthopaedic Surgery
DX: Z47.1 Aftercare following joint replacement surgery (principal); M16.11 Unilateral primary osteoarthritis, right hip; Z96.641 Presence of right artificial hip joint
CPT/HCPCS: 73502

== ENCOUNTER → 2016-12-28 | Outpatient (CLI) | payer OTHER ==
--- NOTE | 2016-12-28 15:43 | RADRPT ---
PROCEDURE: XR Right hip and pelvis. CLINICAL INDICATION: Right hip pain. Pelvic pain. Postop. TECHNIQUE: Two views. Frontal pelvis and frontal right hip. COMPARISON: 11/16/2016 joaquina FINDINGS: There is no fracture or dislocation. The soft tissues are normal. There is a right hip total arthroplasty which appears satisfactory. There are moderate degenerative changes of the left hip. There is no lytic or blastic lesion. There are degenerative changes of the lower lumbar spine. IMPRESSION: 1. Satisfactory postoperative appearance of the right hip. 2. Moderate degenerative changes of the left hip. 3. Degenerative changes of the lower lumbar spine. RPTAT: QQ .Elías Koenig MD, MD Date Time Electronically viewed and signed by .Elías Koenig MD, MD on 12/28/2016 15:43 .R/
== END | disposition home or self-care (01) ==
LOC: HKI 08:43
PROVIDERS: ATTEND Orthopaedic Surgery
DX: Z47.1 Aftercare following joint replacement surgery (principal); M16.11 Unilateral primary osteoarthritis, right hip; Z96.641 Presence of right artificial hip joint
CPT/HCPCS: 73502

== ENCOUNTER → 2017-08-03 | Outpatient (CLI) | END | disposition home or self-care (01) ==

== ENCOUNTER → 2018-07-05 | Outpatient (CLI) | payer OTHER ==
[~2018-07-05] MED LIST changes: -ALBU8.5H3 INH; +ALBU8.5H8 INH; -HYDR-3498 PO; +HYDR-3601 PO
--- NOTE | 2018-07-05 17:53 | HKNOTE ---
DATE OF SERVICE: HISTORY OF PRESENT ILLNESS: Mr. Zeng states that she has occasional pain in her right hip. S he had previous physical therapy which improved her hip. She has had a previous right total hip arth roplasty by Dr. Noah Velasquez. She does not use any assistive devices. She also has occasional low ba ck pain. RIGHT HIP EXAMINATION: 120 degrees of flexion, 35 degrees of extension, 30 degrees of internal rotat ion, 40 degrees of external rotation. Negative Pau's test. Nontender over the greater trochanter. RIGHT HIP IMAGING: X-rays of the right hip demonstrate that the implant is in acceptable alignment. No fractures, dislocations or loosening. IMPRESSION: A 62-year-old female status post right total hip arthroplasty. PLAN: We will request authorization for additional physical therapy as well as acupuncture treatment for the right hip. She will follow up in 1 year. Dictated By: GURJIT SADLER/ZACKARY Conf#: [id number] DID#: [id number]
--- NOTE | 2018-07-06 10:37 | RADRPT ---
PROCEDURE: XR Right hip and pelvis. CLINICAL INDICATION: Right hip pain. Pelvic pain. Postop. TECHNIQUE: Three views. Frontal pelvis. Frontal and lateral right hip. COMPARISON: 08/03/2017. FINDINGS: There is no fracture or dislocation. The soft tissues are normal. There is a right hip total arthroplasty which appears satisfactory. There are degenerative changes of the left hip with joint space narrowing, osteophytes, and subarticu lar cysts in the superior acetabulum. There are degenerative changes of the lower lumbar spine. There is no lytic or blastic lesion. The upper pelvis is not completely included on the image. IMPRESSION: 1. Satisfactory postoperative appearance of the right hip. 2. Degenerative changes of the left hip and lower lumbar spine. 3. Otherwise unremarkable study. RPTAT: QQ .Elías Koenig MD, Date Time Electronically viewed and signed by .Elías Koenig MD, on 07/06/2018 10:37 .R/
== END | disposition home or self-care (01) ==
LOC: HKI 15:41
PROVIDERS: ATTEND Orthopaedic Surgery Adult Reconstructive Orthopaedic Surgery
DX: M25.551 Pain in right hip (principal)
CPT/HCPCS: 73502; Z7500; G0463